=== PATIENT | male | born 1985 | race Caucasian/White ===

== ENCOUNTER 2018-01-11 08:16 | Emergency (ER) ==
[2018-01-11 08:26] VITALS: BP 111/70; TEMP 97.5; BMI 26.3
--- NOTE | 2018-01-11 08:35 | ED.PDOC ---
General ED Provider: Dr. RC GONZALEZ Chief Complaint: Chest Wall Injury/Pain Stated Complaint: Shoulder injury. States was changing out a tire when the van sunk into the soft ground resulting the van handle forcefully striking his Lt anterior chest and shoulder pinning him to the ground. No effect on respiratory system. Managed to get out from under the device Time Seen by Physician: 08:30 Mode of Arrival: Walk-In Information Source: Patient Exam Limitations: No limitations Primary Care Provider: TIM PERAZA Referred to ED by: Other (Radha) Nursing and Triage Documentation Reviewed and Agree: Yes (changing tire on truck this am, van slipped and portion of truck landed on) Reviewed sepsis parameters & appropriate labs ordered?: No System Inflammatory Response Syndrome: Not Applicable Sepsis Protocol: For patient's 13 years and over: Temp is 96.8 and below OR 101 and greater Pulse >90 BPM Resp >20/minute Acutely Altered Mental Status Are patient's symptoms suggestive of a new infection, such as: -Pneumonia -Skin, Soft Tissue -Endocarditis -UTI -Bone, Joint Infection -Implantable Device -Acute Abdominal Infection -Wound Infection -Meningitis -Blood Stream Catheter Infection -Unknown System Inflammatory Response Syndrome: Not Applicable Trauma/Injury Complaint Exam - Truncal Trauma Complaint/Exam Location of Pain: Reports: Left (Shoulder and anterior lt chest wall) Symptoms Are: Still present Onset of Pain: Reports: Immediate Initial Severity: Moderate Current Severity: Mild Mechanism: Reports: Blunt trauma Aggravating: Reports: Movement Alleviating: Reports: Rest Associated Signs and Symptoms: Reports: Chest pain Related History: Reports: Occupational injury Related Surgical History: Reports: None Vertebral Tenderness Present: No Vertebral Deformity Present: No Trachial Deviation Present: No JVD Present: No Crepitus Present: No Diminished Breath Sounds: No Reproducible Pain at: Lt Ant chest, Acromioclavicular and anterior shoulder Muffled Heart Sounds Present: No Paradoxical Chest Wall Movement Present: No Abdominal Guarding Present: No Abdominal Rigidity Present: No Referred Shoulder Pain (Kehr's Sign) Present: No Differential Diagnoses: Chest Wall Contusion, Other (Lt shoulder strain and contusion ) Review of Systems - Review Of Systems Constitutional: Reports: No symptoms Eyes: Reports: No symptoms Ears, Nose, Mouth, Throat: Reports: No symptoms Respiratory: Reports: No symptoms Cardiac: Reports: Chest pain GI: Reports: No symptoms : Reports: No symptoms Musculoskeletal: Reports: Joint pain Skin: Reports: No symptoms Neurological: Reports: No symptoms Endocrine: Reports: No symptoms Hematologic/Lymphatic: Reports: No symptoms All Other Systems: Reviewed and Negative Past Medical History - Past Medical History Endocrine: Reports: None Cardiovascular: Reports: None Respiratory: Reports: None Hematological: Reports: None Gastrointestinal: Reports: None Genitourinary: Reports: None Neuro/Psych: Reports: None Musculoskeletal: Reports: None Cancer: Reports: None - Surgical History General Surgical History: Reports: None - Family History Family History: Reports: None - Social History Smoking Status: Former smoker Smoking Cessation Counseling Time: > 3 min - 10 min Hx Substance Use: No Alcohol Screening: None Physical Exam - Physical Exam Appearance: Well-appearing, Thin (AAOX3 in NAD) Ill-appearing: None Pain Distress: Mild Eyes: RICKY, EOMI, Conjunctiva clear ENT: Ears normal, Nose normal, Oropharynx normal Neck: Supple Respiratory: Airway patent, Breath sounds clear, Breath sounds equal Cardiovascular: RRR, Pulses normal, No rub, No murmur GI/: Soft, Nontender, No masses Musculoskeletal: Normal strength, ROM intact, No edema Skin: Warm Neurological: Sensation intact, Motor intact, Reflexes intact Psychiatric: Affect appropriate, Mood appropriate Interpretation - Radiology Interpretation Radiology Interpretation By: Radiologist Radiology Results: Negative Exam Interpreted: CXR, Other (shoulder) - EKG Interpretation Rate: Normal Rhythm: Sinus Ectopy: None ST Segment: Normal Interpretation: normal Critical Care Note - Critical Care Note Total Time (mins): 0 Course - Course Orders, Labs, Meds: Orders Category Date Time Status EKG-(ED ONLY) Stat CARDIO 01/11/18 08:46 Ordered Ketorolac Tromethamine [Toradol] MEDS 01/11/18 08:49 Discontinued 10 mg PO ONCE STA CHEST, 2 VIEWS PA & LAT Stat RADS 01/11/18 08:36 Completed SHOULDER, LEFT MIN 2V Stat RADS 01/11/18 08:36 Completed Medications Discontinued Medications Generic Name Dose Route Start Last Admin Trade Name Freq PRN Reason Stop Dose Admin Ketorolac Tromethamine 10 mg 01/11/18 08:49 01/11/18 09:06 Toradol PO 01/11/18 08:50 10 mg ONCE STA Administration Vital Signs: Temp Pulse Resp BP Pulse Ox 01/11/18 08:17 97.5 F L 71 20 111/70 96 Departure - Departure Time of Disposition: 09:35 Disposition: HOME SELF-CARE Discharge Problem: Shoulder contusion, Chest wall contusion Instructions: Blunt Chest Trauma (ED), Exercises for Shoulder Flexion and Extension (ED), Crush Injury (ED) Condition: Good Pt referred to PMD for follow-up: Yes (1-2 days) IPMP verified?: No Additional Instructions: Remain off work for [address] Peraza in 1-2 days for check up and release to work Prescriptions: Ketorolac Tromethamine [Toradol] 10 mg PO Q6H #20 tablet Allergies/Adverse Reactions: Allergies No Known Allergies Allergy (Unverified 01/11/18 08:24) Home Medications: Ambulatory Orders Ketorolac Tromethamine [Toradol] 10 mg PO Q6H #20 tablet 01/11/18 Disposition Discussed With: Patient, Family
[2018-01-11] MEDS ORDERED: TORADOL PO STA (08:49)
--- NOTE | 2018-01-11 09:03 | DI ---
EXAM: Radiographs, left shoulder HISTORY: Initial presentation for left shoulder trauma. COMPARISON: None available. TECHNIQUE: Three views. FINDINGS: Bone mineralization is normal. There is no fracture or dislocation. The joint spaces are maintained. No focal soft tissue abnormality is seen. IMPRESSION: No fracture or dislocation.
--- NOTE | 2018-01-11 09:03 | DI ---
EXAM: Chest two view, frontal and lateral views. HISTORY: Initial presentation for blunt chest trauma. COMPARISON: None available. FINDINGS: The heart size is normal. There is no pulmonary vascular congestion. The lungs are clear . No pleural effusion or pneumothorax is seen. No acute osseous abnormality identified. IMPRESSION: No acute cardiopulmonary process.
== END 2018-01-11 10:04 | disposition home or self-care (01) ==
LOC: ED 08:16
DX: S40.012A Contusion of left shoulder, initial encounter (principal); S20.212A Contusion of left front wall of thorax, initial encounter; W20.8XXA Other cause of strike by thrown, projected or falling object, initial encounter
CPT/HCPCS: 93005; 93010; 99283